=== PATIENT | female | born 1950 | race African-American/Black ===

== ENCOUNTER → 2016-11-23 | Day surgery (SDC) | payer OTHER ==
[~2016-11-23] MED LIST: 1-ME1LIQ PO; ADVAI100I PO; AMIT10 PO; CENTTAB9 PO; CHOL1TAB16 PO; CLON.2 PO; FERR325T PO; FOLI1 PO; FURO40TA PO; GLIM4TAB PO; HYDR200T3 PO; HYZA100T6 PO; LACTATED RINGER'S 1000 ML INJ 1,000 ML ONE; METF-324 PO; METH2.5 PO; PRAV40 PO; PROPOFOL 500 MG/50 ML BTL IV ONE; TYLE3 PO; VITA10002 PO
== END | disposition home or self-care (01) ==
LOC: ESDC 08:42
PROVIDERS: ATTEND Internal Medicine Gastroenterology
DX: Z12.11 Encounter for screening for malignant neoplasm of colon (principal); D12.2 Benign neoplasm of ascending colon; E11.9 Type 2 diabetes mellitus without complications; Z79.84 Long term (current) use of oral hypoglycemic drugs
CPT/HCPCS: 00810; 45385; 82948; 88305; J7120